=== PATIENT | male | born 1990 | race Two or more races ===

== ENCOUNTER 2018-08-04 18:13 | Emergency (ER) | payer SELFPAY ==
[~2018-08-04] VITALS: Ht 180.3 cm; Wt 119.3 kg
[~2018-08-04 18:13] MED LIST: NKM
[2018-08-04 18:49] VITALS: BP 139/89
[2018-08-04] MEDS ORDERED: Methocarbamol 500mg tab ORAL ONE (19:15)
[2018-08-04] MEDS ORDERED: Acetaminophen 500mg (ES) tab ORAL ONE (19:15)
--- NOTE | 2018-08-04 19:33 | Emergency Room Report ---
History of Present Illness General Chief Complaint: Pain Source: Patient Present Illness HPI 27-year-old male patient presents ER complaining of left lower inguinal pain and left lower back pain. Reports inguinal pain began about a week ago while he was lifting some furniture at home. Reports pain radiating to his testicle. Denies testicular swelling. Denies dysuria, hematuria. Denies penile pain. Reports was told by physician at a clinic to come to the ER for an ultrasound to rule out hernia. Reports 3 days ago lower left back pain began. Reports pain worse with movement. Reports pain radiates down his left leg to his thigh. Denies bowel or bladder incontinence. denies acute injury or trauma to back. denies fever, chest pain, shortness of breath, abdominal pain. denies blood in stool. Reports able to pass flatus and having bowel movements without difficulty. Allergies: Coded Allergies: No Known Allergies (Unverified , 05/08/16) Patient History Past Medical History: see triage record Reviewed Nursing Documentation: PMH: Agreed; PSxH: Agreed Nursing Documentation-PMH Past Medical History: No Stated History Review of Systems All Other Systems: negative except mentioned in HPI Physical Exam Vital Signs Date Time Temp Pulse Resp B/P (MAP) Pulse Ox O2 Delivery O2 Flow Rate FiO2 08/04/18 18:41 98.6 84 18 145/87 100 Room Air Sp02 EP Interpretation: reviewed, normal General Appearance: well appearing, no apparent distress, alert, GCS 15, non- toxic Head: normocephalic, atraumatic Eyes: bilateral eye normal inspection, bilateral eye PERRL ENT: hearing grossly normal, normal pharynx, no angioedema, normal voice, uvula midline, moist mucus membranes Neck: full range of motion Respiratory: lungs clear, normal breath sounds, no rhonchi, no respiratory distress, no accessory muscle use, no wheezing, speaking full sentences Cardiovascular #1: regular rate, rhythm, no edema Gastrointestinal: non tender, soft, no mass, non-distended, no guarding, no rebound Genitourinary: no CVA tenderness, penis normal - uncircumcised, scrotum normal , other - cremasteric reflex intact bilaterally, no hernia Musculoskeletal: back normal, digits/nails normal, gait/station normal, normal range of motion, non-tender Neurologic: alert, oriented x3, responsive, motor strength/tone normal, sensory intact Psychiatric: mood/affect normal Skin: no rash Medical Decision Making PA Attestation Dr. Mccray is my supervising Physician whom patient management has been discussed with. Diagnostic Impression: Primary Impression: Muscle strain Additional Impressions: Lumbago Epididymal cyst ER Course Pt. presents to the ED c/o left inguinal pain and left lumbosacral pain. Ddx considered but are not limited to sprain, strain, fracture, hernia, torsion , UTI. denies bowel or bladder incontinence, low suspicion for cauda equina. No abdominal pain, negative Rovsing, low suspicion for appendicitis or diverticulitis, does not require CT abdomen at this time. Vital signs: are WNL, pt. is afebrile ER COURSE: Physical exam benign, no hernia on exam, no torsion, cremasteric reflex intact , no high-riding testicle, no blue dot sign. UA negative for infection lumbar spine x-ray negative for acute disease testicular ultrasound shows no hernia, no torsion, small epididymal cyst on right testicle, small hydrocele bilaterally. Informed patient of results. Follow up with specialist. Elevate, take Tylenol for pain. Pain worse with movement, likely muscle strain causing pain symptoms. Advised on rest, ice, heat. Followup with ortho/PT/pain management, discuss need for MRI/CT imaging. Provided with contact information for ortho urgent care. ER precautions given. Patient able to ambulate independently without difficulty. DISCHARGE: At this time pt is stable for d/c to home. Patient is resting comfortably, in no acute distress, nontoxic appearing, talking without difficulty. Patient to take medications as instructed Will provide with patient care instructions and any necessary prescriptions. Care plan and follow-up instructions provided. Patient instructed to follow-up with primary care provider in 3 - 5 days. Patient questions asked and answered. Patient reports understanding and agreement to treatment plan. ER precautions given. Patient instructed to return to ER immediately for any new or worsening of symptoms including but not limited to increasing SOB, persistent fever, chest pain, intractable vomiting. - Please note that this Emergency Department Report was dictated using [employer]CL[employer]ichousekeeping associate technology software, occasionally this can lead to erroneous entry secondary to interpretation by the dictation equipment. Labs Test 08/04/18 14:37 Urine Color Pale yellow Urine Appearance Clear Urine pH 6.5 (4.5-8.0) Urine Specific [place] 1.010 (1.005-1.035) Urine Protein Negative (NEGATIVE) Urine Glucose (UA) Negative (NEGATIVE) Urine Ketones Negative (NEGATIVE) Urine Blood Negative (NEGATIVE) Urine Nitrite Negative (NEGATIVE) Urine Bilirubin Negative (NEGATIVE) Urine Urobilinogen Normal MG/DL (0.0-1.0) Urine Leukocyte Esterase Negative (NEGATIVE) Other X-Ray Diagnostic Results Other X-Ray Diagnostic Results : X-Ray ordered: lumbar spine # of Views/Limited Vs Complete: 4 View Indication: Pain EP Interpretation: Yes PA Xray: Interpretation reviewed, by supervising MD, and agrees with findings. Interpretation: no dislocation, no soft tissue swelling, no fractures, nonspecific bowel gas Impression: No acute disease AYAAN Scribe Text Giovany Fernandez PA-C CT/MRI/US Diagnostic Results CT/MRI/US Diagnostic Results : Imaging Test Ordered: testicular ultrasound Impression no hernia, right epididymal cyst, hydrocele bilaterally Last Vital Signs Date Time Temp Pulse Resp B/P (MAP) Pulse Ox O2 Delivery O2 Flow Rate FiO2 08/04/18 18:49 98.6 81 18 139/89 100 Room Air Status: improved Disposition: HOME, SELF-CARE Condition: Stable Scripts Acetaminophen* (TYLENOL EXTRA STRENGTH*) 500 Mg Tablet 500 MG ORAL Q8H PRN for Prn Headache/Temp > 101, #30 TAB 0 Refills Prov: Dillon Fernandez 08/04/18 Methocarbamol* (ROBAXIN*) 500 Mg Tablet 500 MG PO TID, #21 TAB 0 Refills Prov: Dillon Fernandez 08/04/18 Lidocaine (Lidocaine) 1 Each Adh..patch 5 % TP DAILY for 7 Days, #7 PATCH Prov: Dillon Fernandez 08/04/18 Patient Instructions: Epidermal Cyst, Epidermal Cyst, [id number], Groin Strain, Hydrocele, Adult, Lumbosacral Radiculopathy, Scrotal Masses Additional Instructions: Patient instructed to follow up with primary care provider 3-5 and discuss further referral and imaging at that time. discuss referral to PT, Ortho, pain management. Discuss referral to urology specialist. Patient instructed on rest, ice and heat. Do not take muscle relaxant prior to drinking, driving, or operating heavy machinery. Take medications as directed. Patient questions asked and answered. ER precautions given, patient instructed to return to ER immediately for any new or worsening of symptoms. [facility] [address] [facility], [address] [email or web address] Dillon Fernandez Aug 04, 2018 19:33
[2018-08-04 20:01] LABS: APPEARANCE,URINE CLEAR; BILIRUBIN, URINE NEGATIVE (NEGATIVE); COLOR,URINE PALE YELLOW; GLUCOSE, URINE (UA) NEGATIVE (NEGATIVE); KETONES,URINE NEGATIVE (NEGATIVE); LEUKOCYTE ESTERASE ,URINE NEGATIVE (NEGATIVE); NITRITE,URINE NEGATIVE (NEGATIVE); PH,URINE 6.5 (4.5-8.0); PROTEIN,URINE NEGATIVE (NEGATIVE); UROBILINOGEN,URINE NORMAL MG/DL (0.0-1.0)
[2018-08-04] MEDS ORDERED: TYLENOL EXTRA500 MG ORAL (20:44)
[2018-08-04] MEDS ORDERED: LIDOCAINE700 M1 TP (20:44)
[2018-08-04] MEDS ORDERED: ROBAXIN500 MG PO (20:44)
[2018-08-04 20:55] VITALS: BP 139/89
--- NOTE | 2018-08-05 10:21 | Diagnostic Imaging Report ---
Indication: Low back pain Technique: 3 views of the lumbar spine Comparison: None Findings: Bony alignment is normal. Vertebral body heights are preserved. The disc spaces are preserved. Pedicles are intact. Sacral arches are preserved. Sacral iliac joint spaces are preserved Impression: Negative
--- NOTE | 2018-08-05 10:23 | Diagnostic Imaging Report ---
Indications: Left testicular pain Technique: Grayscale and duplex images of the scrotum Comparison: none Findings:The right testicle measures 4.1cm in length. It demonstrates normal echogenicity. Normal Doppler flow. The epididymal head contains an 11 mm cyst. There is a small right hydrocele The left testicle measures 4.2 cm in length. It demonstrates normal echogenicity and normal Doppler flow. Normal epididymis. There is a small hydrocele Focused ultrasound of the left inguinal region demonstrates no evidence of hernia Impression: No acute abnormality. No evidence of testicular torsion or inguinal hernia Small bilateral hydroceles Cyst within the right epididymal head, either epididymal cyst or spermatocele
== END 2018-08-04 21:45 | disposition home or self-care (01) ==
LOC: EMR 20:58
DX: S39.011A Strain of muscle, fascia and tendon of abdomen, initial encounter (principal); X50.0XXA Overexertion from strenuous movement or load, initial encounter; Y92.009 Unspecified place in unspecified non-institutional (private) residence as the place of occurrence of the external cause; M54.5 Low back pain; N50.3 Cyst of epididymis
CPT/HCPCS: 72020; 76870; 81003; 99284

== ENCOUNTER 2018-08-29 20:41 | Emergency (ER) | payer SELFPAY ==
[~2018-08-29] VITALS: Ht 180.3 cm; Wt 117.9 kg
[~2018-08-29 20:41] MED LIST changes: +LIDOCAINE700 M1 TP; +ROBAXIN500 MG PO; +TYLENOL EXTRA500 MG ORAL
[2018-08-29 21:00] VITALS: BP 135/86
--- NOTE | 2018-08-29 21:36 | Emergency Room Report ---
History of Present Illness General Chief Complaint: Headache Source: Patient Present Illness HPI Patient is a 27-year-old male presented after increased right-sided headache. Patient gradual onset of symptoms. He reports having unilateral throbbing sensation. Patient had onset approximately 3 days ago. He reports having intermittent generalized skin rash. He denies any numbness or weakness. He denies any severe neck pain. He reports any prior history of vertigo in the past. Allergies: Coded Allergies: No Known Allergies (Unverified , 05/08/16) Patient History Past Medical History: see triage record Reviewed Nursing Documentation: PMH: Agreed; PSxH: Agreed Nursing Documentation-PMH Past Medical History: No Stated History Review of Systems All Other Systems: negative except mentioned in HPI Physical Exam Vital Signs Date Time Temp Pulse Resp B/P (MAP) Pulse Ox O2 Delivery O2 Flow Rate FiO2 08/29/18 20:48 98.1 73 17 140/94 99 Room Air Sp02 EP Interpretation: reviewed, normal General Appearance: normal inspection, well appearing, no apparent distress, alert, GCS 15, non-toxic Head: atraumatic ENT: normal ENT inspection, hearing grossly normal, normal voice Neck: normal inspection, full range of motion, supple, no bony tend Respiratory: normal inspection, lungs clear, normal breath sounds, no respiratory distress, no retraction, no wheezing Cardiovascular #1: regular rate, rhythm, no edema Gastrointestinal: normal inspection, normal bowel sounds, non tender, soft, no guarding, no hernia Genitourinary: no CVA tenderness Musculoskeletal: normal inspection, back normal, normal range of motion Neurologic: normal inspection, alert, oriented x3, responsive, development editor III-XII nml as tested, speech normal Psychiatric: normal inspection, judgement/insight normal, mood/affect normal Skin: normal inspection, normal color, no rash Medical Decision Making Diagnostic Impression: Primary Impression: Headache ER Course Patient presented for headache. Differential diagnosis include was not limited to cluster headache, trigeminal neuralgia, aneurysm among others. Because of complexity of patient's case imaging studies were ordered. CT of the head read by radiology showed no acute evidence of sinusitis or mastoiditis. There is no evident acute intracranial hemorrhage or white matter abnormalities. Patient was given medications for symptomatic treatment. Patient was advised to follow- up with neurology for further workup. He was given IM Decadron as well as Reglan and Benadryl. Last Vital Signs Date Time Temp Pulse Resp B/P (MAP) Pulse Ox O2 Delivery O2 Flow Rate FiO2 08/29/18 20:48 98.1 73 17 140/94 99 Room Air Status: improved Disposition: HOME, SELF-CARE Condition: Stable Referrals: NOT CHOSEN IPA/,REFERRING (PCP) Naeem Saavedra MD Aug 29, 2018 21:36
[2018-08-29] MEDS ORDERED: Metoclopramide 10mg/2ml Inj IM ONE (21:45)
--- NOTE | 2018-08-29 22:18 | Diagnostic Imaging Report ---
EXAM: XR Chest, 1 View CLINICAL HISTORY: SOB TECHNIQUE: Frontal view of the chest. COMPARISON: No relevant prior studies available. FINDINGS: Lungs: Unremarkable. No consolidation. Pleural space: Unremarkable. No pneumothorax. Heart: Unremarkable. No cardiomegaly. Mediastinum: Unremarkable. Bones/joints: Unremarkable. IMPRESSION: Normal chest x-ray.
--- NOTE | 2018-08-29 22:27 | Diagnostic Imaging Report ---
EXAM: CT Head Without Intravenous Contrast CLINICAL HISTORY: PAIN TECHNIQUE: Axial computed tomography images of the head/brain without intravenous contrast. CTDI is 70.38 mGy and DLP is 1509 mGy-cm. One or more of the following dose reduction techniques were used: automated exposure control, adjustment of the mA and/or kV according to patient size, use of iterative reconstruction technique. COMPARISON: No relevant prior studies available. FINDINGS: Brain: Unremarkable. No hemorrhage. No significant white matter disease. No edema. Ventricles: Unremarkable. No ventriculomegaly. Bones/joints: Unremarkable. No acute fracture. Soft tissues: Unremarkable. Sinuses: Unremarkable as visualized. No acute sinusitis. Mastoid air cells: Unremarkable as visualized. No mastoid effusion. IMPRESSION: Normal head/brain CT.
[2018-08-29] MEDS ORDERED: IBUPROFEN600 MG ORAL (22:58)
[2018-08-29 23:00] VITALS: BP 128/83
[2018-08-29] MEDS ORDERED: DiphenhydrAMINE 50mg/ml Inj IM ONE (23:00)
[2018-08-29] MEDS ORDERED: Dexamethasone 4mg/ml vial IM ONE (23:00)
== END 2018-08-29 23:00 | disposition home or self-care (01) ==
LOC: EMR 21:09
DX: R51 Headache (principal)
CPT/HCPCS: 70450; 71045; 96372; 99284; J1100; J1200; J2765

== ENCOUNTER 2018-09-19 19:59 | Emergency (ER) | payer SELFPAY ==
[~2018-09-19] VITALS: Ht 180.3 cm; Wt 117.9 kg
[~2018-09-19 19:59] MED LIST changes: +IBUPROFEN600 MG ORAL
[2018-09-19 20:20] VITALS: BP 147/92
--- NOTE | 2018-09-19 20:20 | NUR ---
ER Nurse Note: Pt came from home c/o left foot pain due to stepping on a nail. Pt stated he was cleaning and got injured; pain at 4/10, non radiating. Pt a&ox4, VSS, no signs of distress. Pt walks with steady gait; no drainage, infection, fever noted. ERMD at pt side, will continue to montior.
[2018-09-19] MEDS ORDERED: Bacitracin Oint UD TOPIC ONE (21:15)
[2018-09-19] MEDS ORDERED: Augmentin 875mg Tab ORAL ONE (21:15)
[2018-09-19] MEDS ORDERED: Tetanus/Diptheria/Pertussis Vaccine 0.5ml Syr IM ONE (21:15)
[2018-09-19] MEDS ORDERED: BACITRACIN15 GM TOPIC (21:26)
[2018-09-19] MEDS ORDERED: AUGMENTIN 875-1 EAC1 ORAL (21:26)
[2018-09-19] MEDS ORDERED: IBUPROFEN600 MG ORAL (21:26)
[2018-09-19 21:35] VITALS: BP 147/92
--- NOTE | 2018-09-19 21:35 | NUR ---
ER Nurse Note: Pt seen, treated, medically cleared by ERMD for discharge. Discharge instructions and prescriptions given with repeat verbalization by pt. Instructed pt to follow up with primary care phyican within one weel. Pt a&ox4, VSS, no signs of distress. TDAP given, Left foot cleaned and bandaged; no infection; pt tolerated well. ID band removed; left with all belongings on steady gait, via own transportation.
--- NOTE | 2018-09-20 01:46 | Emergency Room Report ---
History of Present Illness General Chief Complaint: Puncture Wound Source: Patient Present Illness HPI 27-year-old male presents ED for evaluation. States that he stepped on a nail earlier today. States the nail went through his boot. States that the entire nail came out. Presents with pain and swelling to the heel. Tetanus unknown. Pain is dull, 5 out of 10, nonradiating. Denies fevers or chills. Denies any discharge or active bleeding. No other aggravating relieving factors. Denies any other associated symptoms Allergies: Coded Allergies: No Known Allergies (Unverified , 05/08/16) Patient History Past Medical History: none Past Surgical History: none Pertinent Family History: none Social History: Denies: smoking, alcohol use, drug use Immunizations: UTD Reviewed Nursing Documentation: PMH: Agreed; PSxH: Agreed Nursing Documentation-PMH Past Medical History: No Stated History Review of Systems All Other Systems: negative except mentioned in HPI Physical Exam Vital Signs Date Time Temp Pulse Resp B/P (MAP) Pulse Ox O2 Delivery O2 Flow Rate FiO2 09/19/18 20:12 98.4 84 16 147/92 99 Room Air Sp02 EP Interpretation: reviewed, normal General Appearance: no apparent distress, alert, GCS 15, non-toxic Head: normocephalic Eyes: bilateral eye normal inspection, bilateral eye PERRL ENT: normal ENT inspection Neck: normal inspection Respiratory: normal inspection Cardiovascular #1: normal inspection Gastrointestinal: normal inspection Rectal: deferred Genitourinary: no CVA tenderness Musculoskeletal: tender - L heel Neurologic: alert, oriented x3, responsive, motor strength/tone normal, sensory intact, speech normal Psychiatric: normal inspection Skin: other - swelling pain to L heel. puncture wound noted. no discharge or bleeding Lymphatic: normal inspection Medical Decision Making Diagnostic Impression: Primary Impression: Puncture wound ER Course Hospital Course 27 yo M presents to ED c/o puncture wound to L heel from [place] nail Differential diagnoses include: Cellulitis, laceration abscess Clinical course Patient placed on stretcher. After initial history, physical exam reveals a male in no acute distress. On exam there is area of a puncture wound to left heel. No active bleeding or discharge. No surrounding erythema or induration. Discussed findings with patient. Wound care given. Bacitracin dressing applied. Tetanus given, Augmentin given Safe for discharge close outpatient follow-up. We'll provide PMD referrals Diagnosis - puncture wound stable and discharged to home with prescription for bacitracin, augmentin. wound care instructions given. Instructed to followup with PMD. Instructed return to ED if symptoms recur or worsen Last Vital Signs Date Time Temp Pulse Resp B/P (MAP) Pulse Ox O2 Delivery O2 Flow Rate FiO2 09/19/18 20:12 98.4 84 16 147/92 99 Room Air Status: improved Disposition: HOME, SELF-CARE Condition: Stable Scripts Bacitracin (Bacitracin) 28.4 Gm Oint...g. 1 APPLIC TOPIC THREE TIMES A DAY, #28.4 GM Prov: Calin Rousseau MD 09/19/18 Ibuprofen* (MOTRIN*) 600 Mg Tablet 600 MG ORAL Q8H PRN for For Pain, #30 TAB 0 Refills Prov: Calin Rousseau MD 09/19/18 Amoxicillin/Potassium Clav 875-125* (AUGMENTIN 875-125 TABLET*) 1 Each Tablet 1 TAB ORAL TWICE A DAY, #14 TAB Prov: Calin Rousseau MD 09/19/18 Referrals: [facility] Patient Instructions: Puncture Wound Calin Rousseau MD Sep 20, 2018 01:46
== END 2018-09-19 21:35 | disposition home or self-care (01) ==
LOC: EMR 21:28
DX: S91.332A Puncture wound without foreign body, left foot, initial encounter (principal); W22.8XXA Striking against or struck by other objects, initial encounter; Y92.89 Other specified places as the place of occurrence of the external cause; Z23 Encounter for immunization
CPT/HCPCS: 90471; 90715; 99282